=== PATIENT | female | born 1945 | race Two or more races ===

== ENCOUNTER 2025-07-18 07:16 | Day surgery (SDC) | payer MEDICARE, BC ==
[2025-07-18] VITALS (7 sets, daily range): BP systolic 100–114; BP diastolic 54–72; PULSE 61–69; RESP 12–14; O2SAT 93–97
[~2025-07-18] VITALS: Ht 160 cm; Wt 71.7 kg
[~2025-07-18 07:16] MED LIST: AMIT25TA20 PO; CARV-214 PO; EMPA1TAB PO; EZET10TA22 PO; FOLI-119 PO; METH2.5T PO; MONT5CHW12 PO; PRED2.5T4 PO; ROSU20TA14 PO; SULF500T57 PO; TOPI100T68 PO
[2025-07-18] MEDS: IODIXANOL 320MG/ML 100ML BTL IV ONE (07:29)
[2025-07-18] MEDS: VERAPAMIL 2.5MG/ML INJ 2ML VIAL IV ONE (07:44)
[2025-07-18] MEDS: fentaNYL CITRATE 100 MCG/2 ML VL ONE (07:44)
[2025-07-18] MEDS: HEPARIN SODIUM (PORCINE) 5000 UNITS/ML 1ML VIAL ONE (07:44)
[2025-07-18] MEDS: ANGIOMAX 250 MG VIAL IV ONE (07:44)
[2025-07-18] MEDS: MIDAZOLAM HCL 2MG/2ML 2ml VIAL (1mg/ml) ONE (07:45)
[2025-07-18] MEDS: SODIUM CHL 0.9% 0 ML ONE (07:45)
[2025-07-18] MEDS: LIDOCAINE 2%HCL (LOCAL ANESTH.) INJ 20ML MDV ONE (07:45)
--- NOTE | 2025-07-18 10:29 | DVHOP2 ---
Operative Report Procedures performed: Left heart catheterization and bilateral coronary angiogram Moderate sedation Diagnosis: No angiographic evidence for epicardial coronary artery disease (normal coronaries) LVEF of 50% with EDP of 13 mm Hg Cardiac suggestion for management: Optimized medical therapy Guideline directed medical therapy for heart failure Lifestyle and risk factor modifications Findings: LVEF: 50% There was no transaortic valve pressure gradient Left main: Left main was coming off the left sinus of Valsalva. It was free of disease. LAD: LAD was coming off the left main. It provided 1 large diagonal. LAD throughout its course and branches was free of disease. LCX: LCX was a moderate-sized vessel. It provided a moderate-sized OM1 and OM2. LCX throughout its course and branches was free of disease. RCA: RCA was coming off the right sinus of Valsalva. It was the dominant vessel and provided RPDA/RPLS. RCA throughout its course and branches was free of disease. Presentation: Patient is a 80-year-old female who presented to the office with fall of ejection fraction. Past medical history includes asthma, status post spinal stimulator implantation, anemia, gastritis, hiatal hernia, inflammatory a rthritis, hyperlipidemia, COPD, GERD, migraine, osteoporosis, history of vertebral compression fracture and history of diverticular disease. Echocardiogram of June 13, 2025 revealed ejection fraction of 45-50% with impaired relaxation of left ventricle. Mild aortic insufficiency and tricuspid regurgitation was seen. Right ventricular systolic pressure was less than 35 mm Hg. Patient was sent for cardiac catheterization. 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 She was prepped and draped in sterile fashion. 0.5 mg of Versed and 25 mcg of fentanyl were used for moderate sedation. At 1st we attempted to use the right radial artery for access. We recognized that the radial artery was tortuous and could not be used for angiogram access. Decision was made to proceed with obtaining right femoral artery for access. With the use of ul trasound and micropuncture, the right femoral artery was accessed. After angiographically proving a good access point, micropuncture sheath was exchanged over a wire to a 6 Malagasy femoral sheath. A 6 Malagasy JL4 diagnostic catheter was used to perform left coronary angiography. A 6 Malagasy JR4 diagnostic catheter was used to perform right coronary angiography. A 6 Malagasy pigtail was used to perform left heart catheterization (obtaining pressures and performing left ventriculography). There was no indication for any transcatheter revascularization. Total bleeding was less than 10 mL. There was no dissection/hematoma/perforation. Right femoral artery access site was managed by deploying an Angio-Seal device. Patient tolerated the procedure with no comp lication. Fluoroscopy time: 3.1 minutes contrast: 40 mL of Visipaque KIP KATZ MD Jul 18, 2025 10:29
== END 2025-07-18 12:13 | disposition home or self-care (01) ==
LOC: CATH 07:16
PROVIDERS: ATTEND Internal Medicine Cardiovascular Disease
DX: R94.39 Abnormal result of other cardiovascular function study (principal); J44.9 Chronic obstructive pulmonary disease, unspecified; K44.9 Diaphragmatic hernia without obstruction or gangrene; M19.90 Unspecified osteoarthritis, unspecified site; M81.0 Age-related osteoporosis without current pathological fracture; E78.5 Hyperlipidemia, unspecified; G43.909 Migraine, unspecified, not intractable, without status migrainosus; Z96.82 Presence of neurostimulator; Z86.2 Personal history of diseases of the blood and blood-forming organs and certain disorders involving the immune mechanism; Z98.890 Other specified postprocedural states
CPT/HCPCS: 93458; C1760; C1894; J1644; J2250; J3010; J7040; Q9967; 99152; 99153